=== PATIENT | female | born 1945 | race Two or more races ===

== ENCOUNTER 2022-09-29 06:15 | Day surgery (SDC) | payer OTHER ==
[~2022-09-29 06:15] MED LIST: ARICEPT10 MG PO; AVAPRO150 MG PO; CLARITIN10 M1 PO; NABUMETONE750 MG PO; NORVASC5 MG PO; PROTONIX20 MG PO; ZOCOR20 MG PO
== END 2022-09-30 01:40 | disposition home or self-care (01) ==
LOC: CIR.AMB 06:15
PROVIDERS: ATTEND Surgery
DX: N60.91 Unspecified benign mammary dysplasia of right breast (principal); N60.31 Fibrosclerosis of right breast; N60.21 Fibroadenosis of right breast; R92.1 Mammographic calcification found on diagnostic imaging of breast; R59.0 Localized enlarged lymph nodes; Z20.822 Contact with and (suspected) exposure to COVID-19; I10 Essential (primary) hypertension
CPT/HCPCS: 19301; 38525; 38792; A9541